=== PATIENT | female | born 1940 | race Caucasian/White ===

== ENCOUNTER 2018-06-10 11:44 | Emergency (ER) | payer OTHER ==
[~2018-06-10] VITALS: Ht 157.5 cm; Wt 45.4 kg
[2018-06-10] MEDS ORDERED: ATENOLOL25 MG (12:27)
[2018-06-10] MEDS ORDERED: AMBIEN10 MG PO (12:28)
[2018-06-10] MEDS ORDERED: ULTRACET PO (12:28)
[2018-06-10] MEDS ORDERED: METFORMIN HCL500 M2 PO (12:28)
[2018-06-10] MEDS ORDERED: LIPITOR20 MG (12:29)
[2018-06-10] MEDS ORDERED: HUMULIN N100 UNIT/2 (12:29)
[2018-06-10] MEDS ORDERED: TRAMADOL HCL50 MG (12:29)
[2018-06-10] MEDS ORDERED: LIPITOR20 MG PO (12:39)
[2018-06-10] MEDS ORDERED: FORTAMET1000 MG PO (12:39)
[2018-06-10] MEDS ORDERED: ATENOLOL25 MG PO (12:39)
[2018-06-10] MEDS ORDERED: HUMULIN N100 UNIT/2 SQ (12:40)
[2018-06-10] MEDS ORDERED: LOSARTAN POTASS25 MG PO (12:41)
== END 2018-06-10 14:13 | disposition home or self-care (01) ==
LOC: ER 11:44
DX: M79.601 Pain in right arm (principal); H53.8 Other visual disturbances

== ENCOUNTER 2018-11-22 09:58 | Emergency (ER) | payer OTHER ==
[~2018-11-22] VITALS: Ht 157.5 cm; Wt 45.4 kg
[~2018-11-22 09:58] MED LIST: AMBIEN10 MG PO; ATENOLOL25 MG; ATENOLOL25 MG PO; FORTAMET1000 MG PO; HUMULIN N100 UNIT/2; HUMULIN N100 UNIT/2 SQ; LIPITOR20 MG; LIPITOR20 MG PO; LOSARTAN POTASS25 MG PO; METFORMIN HCL500 M2 PO; TRAMADOL HCL50 MG; ULTRACET PO
== END 2018-11-22 14:04 | disposition home or self-care (01) ==
LOC: ER 09:58
DX: K11.21 Acute sialoadenitis (principal); E11.65 Type 2 diabetes mellitus with hyperglycemia

== ENCOUNTER 2018-11-25 12:08 | Emergency (ER) | payer OTHER ==
[~2018-11-25] VITALS: Ht 152.4 cm; Wt 45.4 kg
[2018-11-25] MEDS ORDERED: AMBIEN5 MG (12:56)
[2018-11-25] MEDS ORDERED: CLEOCIN HCL300 MG (12:56)
[2018-11-25] MEDS ORDERED: LEVAQUIN500 MG PO (15:28)
== END 2018-11-25 15:49 | disposition home or self-care (01) ==
LOC: ER 12:08
DX: L02.01 Cutaneous abscess of face (principal)

== ENCOUNTER 2022-03-27 14:17 | Emergency (ER) | payer OTHER ==
[~2022-03-27] VITALS: Ht 157.5 cm; Wt 43.1 kg
[~2022-03-27 14:17] MED LIST changes: +AMBIEN5 MG; +CLEOCIN HCL300 MG; +LEVAQUIN500 MG PO
== END 2022-03-27 21:59 | disposition home or self-care (01) ==
LOC: ER 14:17
DX: L03.116 Cellulitis of left lower limb (principal); E11.9 Type 2 diabetes mellitus without complications; Z79.4 Long term (current) use of insulin; I10 Essential (primary) hypertension; Z88.8 Allergy status to other drugs, medicaments and biological substances

== ENCOUNTER 2022-04-26 05:56 | Emergency (ER) | payer OTHER ==
[~2022-04-26] VITALS: Ht 170.2 cm; Wt 43.1 kg
== END 2022-04-26 13:33 | disposition home or self-care (01) ==
LOC: ER 05:56
DX: E11.649 Type 2 diabetes mellitus with hypoglycemia without coma (principal); Z79.4 Long term (current) use of insulin; Z79.84 Long term (current) use of oral hypoglycemic drugs; S01.112A Laceration without foreign body of left eyelid and periocular area, initial encounter; W06.XXXA Fall from bed, initial encounter; Y93.89 Activity, other specified; Y92.013 Bedroom of single-family (private) house as the place of occurrence of the external cause; Y99.9 Unspecified external cause status; I10 Essential (primary) hypertension; Z88.8 Allergy status to other drugs, medicaments and biological substances

== ENCOUNTER 2023-01-28 09:59 | Outpatient (CLI) | payer OTHER ==
[~2023-01-28 09:59] MED LIST changes: +LEXAPRO5 MG PO
== END 2023-01-28 10:15 | disposition home or self-care (01) ==
LOC: RAD 09:59
PROVIDERS: ATTEND Internal Medicine
DX: K22.0 Achalasia of cardia (principal)

== ENCOUNTER → 2023-02-25 | Emergency (ER) | payer OTHER | END | disposition home or self-care (01) | LOC: ER 15:04 | DX: Z53.21 Procedure and treatment not carried out due to patient leaving prior to being seen by health care provider (principal) ==

== ENCOUNTER 2023-03-10 10:51 | Outpatient (CLI) | payer OTHER | END 2023-03-10 11:04 | disposition home or self-care (01) | LOC: TOM 10:51 | PROVIDERS: ATTEND Internal Medicine | DX: H66.90 Otitis media, unspecified, unspecified ear (principal) ==

== ENCOUNTER 2023-11-16 14:54 | Outpatient (CLI) | payer OTHER ==
[~2023-11-16 14:54] MED LIST changes: +COZAAR25 MG PO; +LIPITOR40 M1 PO; +LIRICA; +NEURONTIN300 MG; +TRAMADOL HCL E100 M1; +ZOLPIDEM TARTR3.5 MG
== END 2023-11-16 14:58 | disposition home or self-care (01) ==
LOC: RAD 14:54
PROVIDERS: ATTEND Internal Medicine
DX: R07.82 Intercostal pain (principal); M05.79 Rheumatoid arthritis with rheumatoid factor of multiple sites without organ or systems involvement; Z88.5 Allergy status to narcotic agent

== ENCOUNTER 2024-05-01 15:56 | Inpatient (IN) | payer OTHER ==
[~2024-05-01] VITALS: Ht 162.6 cm; Wt 49.9 kg
[2024-05-01] MEDS ORDERED: 0.9 % SODIUM CHLORIDE 1,000 ML IV SCH (16:45)
[2024-05-01] MEDS ORDERED: VANCOMYCIN HCL 1,000 MG VIAL IV ONE (16:45)
[2024-05-01] MEDS ORDERED: VANCOMYCIN HCL 1,000 MG VIAL ONE (16:48)
[2024-05-01 17:22] LABS: HEMATOCRIT 38.4 % (36.0-45.00); HEMOGLOBIN 12.9 g/dL (12.0-15.00); MEAN CORPUSCULAR HEMOGLOBIN 30.9 pg (27.00-32.0); MEAN CORPUSCULAR HGB CONC 33.6 g/dl (32.0-36.0); PLATELET COUNT 202 K/uL (150-450); RED BLOOD COUNT 4.18 M/uL (4.00-6.00); RED CELL DISTRIBUTION WIDTH 13.9 % (11.5-14.5)
[2024-05-01 17:35] LABS: ERYTHROCYTE SEDIMENTATION RATE 49 mm/hr
[2024-05-01 18:15] LABS: ALBUMIN 3.4 gm/dL (3.4-5.0); BILIRUBIN TOTAL 0.38 mg/dL (0.3-1.2); CALCIUM 9.8 mg/dL (8.5-10.1); CREATININE SERUM 0.87 mg/dL (0.55-1.02); GFR 61.88; GLOBULINA 4.2 G/DL (2.4-3.5); POTASSIUM 4.44 mEq/L (3.5-5.1); TOTAL PROTEIN 7.6 gm/dL (6.4-8.2)
[2024-05-01 18:16] LABS: C-REACTIVE PROTEIN 3.2 MG/DL (0.00-0.29)
[2024-05-01] MEDS ORDERED: GABAPENTIN 300 MG CAPSULE PO SCH (20:34)
[2024-05-01] MEDS ORDERED: CEFTRIAXONE SODIUM 2,000 MG in 0.9 % SODIUM CHLORIDE 100 ML IV SCH (20:35)
[2024-05-01] MEDS ORDERED: ACETAMINOPHEN 500 MG GEL..CAP PO PRN (20:45)
[2024-05-01] MEDS ORDERED: INSULIN LISPRO 1,000 UNIT/10 ML UNITS SUBCUTANEO PRN (20:45)
[2024-05-01] MEDS ORDERED: KETOROLAC TROMETHAMINE 15 MG VIAL IU ONE (20:45)
[2024-05-01] MEDS ORDERED: DEXTROSE 50 % IN WATER 0.5 G/ML DISP.SYRIN IV PRN (20:45)
[2024-05-01] MEDS ORDERED: ZOLPIDEM TARTRATE 10 MG TABLET PO SCH (21:00)
[2024-05-01] MEDS ORDERED: KETOROLAC TROMETHAMINE 30 MG VIAL ONE (22:08)
[2024-05-01] MEDS ORDERED: CEFTRIAXONE SODIUM 2,000 MG VIAL ONE (22:09)
[2024-05-01 23:17] LABS: URINE APPEARANCE Clear; URINE BILIRRUBIN Negative (NEGATIVE); URINE BLOOD Negative; URINE COLOR Yellow; URINE GLUCOSE Negative (NEGATIVE); URINE KETONE Negative (NEGATIVE); URINE LEUKOCYTE Moderate; URINE NITRATE Negative; URINE PROTEIN Negative (NEGATIVE); URINE UROBILINOGEN 0.2 E.U./dl
[2024-05-01 23:18] LABS: PARTIAL THROMBOPLASTIN TIME 30.5 SECONDS (22.0-34.0); PROTHROMBIN TIME 10.9 SECONDS (9.0-11.5)
[2024-05-01 23:21] LABS: URINE BACTERIA 322.4 uL (0.0-1933); URINE EPITHELIAL CELLS 12.2 uL (0.0-38.8); URINE WBC 250.4 uL (0.0-23.2)
[2024-05-01 23:31] LABS: URINE CAST 0.15 uL (0.0-1.40); URINE RBC 1.8 uL (0.0-20.8)
[2024-05-02] MEDS ORDERED: LOSARTAN POTASSIUM 25 MG TABLET PO SCH (09:00)
[2024-05-02] MEDS ORDERED: FAMOTIDINE/PF 20 MG in 0.9 % SODIUM CHLORIDE 8 ML IV PUSH SCH (09:00)
[2024-05-02] MEDS ORDERED: ATORVASTATIN CALCIUM 40 MG TABLET PO SCH (09:00)
[2024-05-02] MEDS ORDERED: ENOXAPARIN SODIUM 40 MG/0.4 ML SYRINGE SUBCUTANEO SCH (09:00)
[2024-05-02] MEDS ORDERED: VANCOMYCIN HCL 1,000 MG VIAL IV SCH (09:00)
[2024-05-02] MEDS ORDERED: ISOSORBIDE MONONITRATE 30 MG TABLET PO SCH (09:00)
[2024-05-02] MEDS ORDERED: ATENOLOL 25 MG TABLET PO SCH (09:00)
[2024-05-02] MEDS ORDERED: INSULIN LISPRO 1,000 UNIT/10 ML UNITS SUBCUTANEO PRN (21:45)
[2024-05-03 08:29] LABS: HEMATOCRIT 37.6 % (36.0-45.00); HEMOGLOBIN 12.8 g/dL (12.0-15.00); MEAN CORPUSCULAR HEMOGLOBIN 30.7 pg (27.00-32.0); MEAN CORPUSCULAR HGB CONC 34.1 g/dl (32.0-36.0); PLATELET COUNT 155 K/uL (150-450); RED BLOOD COUNT 4.17 M/uL (4.00-6.00); RED CELL DISTRIBUTION WIDTH 13.6 % (11.5-14.5)
[2024-05-03 08:42] LABS: ALBUMIN 3.1 gm/dL (3.4-5.0); BILIRUBIN TOTAL 0.46 mg/dL (0.3-1.2); CALCIUM 8.7 mg/dL (8.5-10.1); CREATININE SERUM 0.59 mg/dL (0.55-1.02); GFR 96.87; GLOBULINA 3.4 G/DL (2.4-3.5); POTASSIUM 4.33 mEq/L (3.5-5.1); TOTAL PROTEIN 6.5 gm/dL (6.4-8.2); TSH 1.27 uIU/mL (0.358-3.74)
[2024-05-03] MEDS ORDERED: ASPIRIN 81 MG TABLET.EC PO SCH (09:00)
[2024-05-03] MEDS ORDERED: INSULIN GLARGINE,HUM.REC.ANLOG 1,000 UNITS/10 ML UNITS SUBCUTANEO STA (21:50)
[2024-05-04] MEDS ORDERED: INSULIN GLARGINE,HUM.REC.ANLOG 1,000 UNITS/10 ML UNITS SUBCUTANEO SCH (21:00)
[2024-05-05] MEDS ORDERED: INSULIN LISPRO 1,000 UNIT/10 ML UNITS SUBCUTANEO SCH (08:00)
[2024-05-05] MEDS ORDERED: 0.9 % SODIUM CHLORIDE 10 ML VIAL IJ ONE (09:20)
== END 2024-05-05 18:16 | disposition home or self-care (01) | DRG 264 ==
LOC: ER 15:56 → SEC-K 21:27 → SURG 21:27
PROVIDERS: General Practice; Internal Medicine Endocrinology, Diabetes & Metabolism; ADMIT Internal Medicine; ATTEND Internal Medicine
PROC: B54DZZZ Ultrasonography of Bilateral Lower Extremity Veins (ICD-10-PCS; 2024-05-01)
PROC: B44HZZZ Ultrasonography of Bilateral Lower Extremity Arteries (ICD-10-PCS; 2024-05-01)
PROC: 0JBQ0ZZ Excision of Right Foot Subcutaneous Tissue and Fascia, Open Approach (ICD-10-PCS; principal; 2024-05-03)
DX: E11.51 Type 2 diabetes mellitus with diabetic peripheral angiopathy without gangrene (principal); L03.115 Cellulitis of right lower limb; E11.621 Type 2 diabetes mellitus with foot ulcer; L97.519 Non-pressure chronic ulcer of other part of right foot with unspecified severity; E11.65 Type 2 diabetes mellitus with hyperglycemia; I11.9 Hypertensive heart disease without heart failure; F03.90 Unspecified dementia, unspecified severity, without behavioral disturbance, psychotic disturbance, mood disturbance, and anxiety; Z79.84 Long term (current) use of oral hypoglycemic drugs; Z79.4 Long term (current) use of insulin; Z95.1 Presence of aortocoronary bypass graft

== ENCOUNTER 2024-05-29 12:35 | Inpatient (IN) | payer OTHER ==
[~2024-05-29] VITALS: Ht 157.5 cm; Wt 48.1 kg
--- NOTE | 2024-05-29 13:10 | NUR ---
SE RECIBE PACIENTE ALERTA Y ORIENTADO X3. PARAMEDICOS REFIEREN ENCONTRAR A PACIENTE HIPOTENSA, SUDOROSA Y PALIDA. PACIENTE AL MOMENTO REFIERE DOLOR DE PECHO EN LADO LIBRADO. LA MISMA REACCIONA A DOLOR POR PRESION. FAMILIAR REFIERE HACE UNOS CALDERA LE REALIZARON UN ARTERIOGRAMA. FAMILIAR REFIERE CARDIOLOGO ES JOSE MCKENZIE O DR. CHAPARRO. SE MIDEN S/V. SE REALIZA EKG Y SE UBICA EN K8, CON MONITOR CARDIACO.
--- NOTE | 2024-05-29 13:27 | NUR ---
PTE ALERTA Y ORIENTADA X3. RN GRANT EDUCA A PTE SOBRE [place] MEDICO, LA MISMA REFIERE ENTENDER. SE EVERARDO MUESTRAS DE LAB BAJO MEDIDAS ASEPTICAS Y SE ENVIAN. SE NOTIFICA PLACA PENDIENTE
[2024-05-29 13:52] LABS: HEMOGLOBIN 11.6 g/dL (12.0-15.00); MEAN CELL VOLUME 91.1 fL (80.00-100.00); MEAN CORPUSCULAR HEMOGLOBIN 30.2 pg (27.00-32.0); MEAN CORPUSCULAR HGB CONC 33.2 g/dl (32.0-36.0); PLATELET COUNT 158 K/uL (150-450); RED BLOOD COUNT 3.84 M/uL (4.00-6.00); RED CELL DISTRIBUTION WIDTH 13.7 % (11.5-14.5)
[2024-05-29 14:22] LABS: ABG PH 7.432 (7.35-7.45); ABG PO2 71.8 mmHg (80-100); ABG pCO2 36.7 mmHg (35-45); BASE EXCESS 0 mmol/l; BICARBONATE 23.9 mmol/l (23-25); SaO2 94.7 %; Tco2 25.1 mmol/l
[2024-05-29 14:57] LABS: allen test SATISFACTORY; o2 21 %; puncture site RADIAL RIGHT
[2024-05-29 15:21] LABS: ALBUMIN 2.9 gm/dL (3.4-5.0); BILIRUBIN TOTAL 0.45 mg/dL (0.3-1.2); CALCIUM 8.6 mg/dL (8.5-10.1); CREATININE SERUM 0.82 mg/dL (0.55-1.02); GFR 66.26; GLOBULINA 3.3 G/DL (2.4-3.5); POTASSIUM 4.81 mEq/L (3.5-5.1); TOTAL PROTEIN 6.2 gm/dL (6.4-8.2)
[2024-05-29 15:42] LABS: PH,URINE 6.5 (5.0-8.0); URINE APPEARANCE Clear; URINE BILIRRUBIN Negative (NEGATIVE); URINE BLOOD Negative; URINE COLOR Yellow; URINE GLUCOSE Negative (NEGATIVE); URINE KETONE Negative (NEGATIVE); URINE LEUKOCYTE Trace; URINE NITRATE Negative; URINE PROTEIN Negative (NEGATIVE); URINE UROBILINOGEN 0.2 E.U./dl
[2024-05-29 15:43] LABS: URINE EPITHELIAL CELLS 5.1 uL (0.0-38.8); URINE WBC 9.5 uL (0.0-23.2)
[2024-05-29 15:45] LABS: URINE RBC 1.8 uL (0.0-20.8)
[2024-05-29] MEDS ORDERED: CEFTRIAXONE SODIUM 1,000 MG VIAL IV ONE (15:45)
[2024-05-29] MEDS ORDERED: CEFTRIAXONE SODIUM 1,000 MG VIAL ONE (15:45)
[2024-05-29] MEDS ORDERED: INSULIN LISPRO 1,000 UNIT/10 ML UNITS SUBCUTANEO PRN (19:30)
[2024-05-29] MEDS ORDERED: 0.9 % SODIUM CHLORIDE 1,000 ML IV SCH (19:30)
[2024-05-29] MEDS ORDERED: DEXTROSE 50 % IN WATER 0.5 G/ML DISP.SYRIN IV PRN (19:30)
[2024-05-29] MEDS ORDERED: ACETAMINOPHEN 500 MG GEL..CAP PO PRN (19:30)
[2024-05-29] MEDS ORDERED: GUAIFEN/DEXTROMETHORPHAN/PE 10 ML BLIST.PACK PO SCH (21:00)
[2024-05-29] MEDS ORDERED: ZOLPIDEM TARTRATE 10 MG TABLET PO SCH (21:00)
[2024-05-29] MEDS ORDERED: FUROsemide 20 MG/2 ML VIAL IV SCH (21:00)
[2024-05-29] MEDS ORDERED: FUROsemide 20 MG/2 ML VIAL ONE (23:42)
[2024-05-29] MEDS ORDERED: GUAIFEN/DEXTROMETHORPHAN/PE 10 ML BLIST.PACK PO ONE (23:43)
[2024-05-29 23:58] LABS: PARTIAL THROMBOPLASTIN TIME 27.6 SECONDS (22.0-34.0); PROTHROMBIN TIME 10.9 SECONDS (9.0-11.5)
[2024-05-30 00:22] VITALS: BP 134/58; O2SAT 96
[2024-05-30] MEDS ORDERED: CEFEPIME HCL 2,000 MG in 0.9 % SODIUM CHLORIDE 100 ML IV SCH ×2 (01:00→21:00)
[2024-05-30] MEDS ORDERED: CEFEPIME HCL 2,000 MG VIAL ONE (01:16)
[2024-05-30] MEDS ORDERED: GUAIFEN/DEXTROMETHORPHAN/PE 10 ML BLIST.PACK PO ONE (04:45)
[2024-05-30 07:00] VITALS: BP 132/63; O2SAT 97
[2024-05-30] MEDS ORDERED: ATORVASTATIN CALCIUM 40 MG TABLET PO SCH (09:00)
[2024-05-30] MEDS ORDERED: ISOSORBIDE MONONITRATE 30 MG TABLET PO SCH (09:00)
[2024-05-30] MEDS ORDERED: PATIENTS OWN MEDICATION (MEDICAMENTO EN PISO) PO SCH (09:00)
[2024-05-30] MEDS ORDERED: FAMOTIDINE/PF 20 MG in 0.9 % SODIUM CHLORIDE 8 ML IV PUSH SCH (09:00)
[2024-05-30] MEDS ORDERED: LOSARTAN POTASSIUM 25 MG TABLET PO SCH (09:00)
[2024-05-30] MEDS ORDERED: GABAPENTIN 300 MG CAPSULE PO SCH (09:00)
[2024-05-30 15:50] VITALS: BP 111/62; O2SAT 97
[2024-05-30] MEDS ORDERED: METRONIDAZOLE/SODIUM CHLORIDE 100 ML IV SCH (17:00)
[2024-05-30 17:07] VITALS: BP 101/60; O2SAT 100
[2024-05-31 00:20] VITALS: BP 107/63; O2SAT 97
[2024-05-31 07:38] LABS: HEMATOCRIT 38.2 % (36.0-45.00); HEMOGLOBIN 13.2 g/dL (12.0-15.00); MEAN CELL VOLUME 90.1 fL (80.00-100.00); MEAN CORPUSCULAR HEMOGLOBIN 31.2 pg (27.00-32.0); MEAN CORPUSCULAR HGB CONC 34.6 g/dl (32.0-36.0); PLATELET COUNT 168 K/uL (150-450); RED BLOOD COUNT 4.24 M/uL (4.00-6.00); RED CELL DISTRIBUTION WIDTH 13.7 % (11.5-14.5)
[2024-05-31] MEDS ORDERED: FAMOTIDINE/PF 20 MG/2 ML VIAL ONE (07:54)
[2024-05-31] MEDS ORDERED: INSULIN LISPRO 1,000 UNIT/10 ML UNITS SUBCUTANEO SCH ×2 (08:00→17:00)
[2024-05-31 08:20] LABS: BILIRUBIN TOTAL 0.44 mg/dL (0.3-1.2); CALCIUM 8.9 mg/dL (8.5-10.1); CREATININE SERUM 0.81 mg/dL (0.55-1.02); GFR 67.2; PHOSPHOROUS 3.1 mg/dL (2.5-4.9); POTASSIUM 4.22 mEq/L (3.5-5.1)
[2024-05-31 08:22] LABS: C-REACTIVE PROTEIN 1.35 MG/DL (0.00-0.29)
[2024-05-31 08:40] LABS: PLATELET ESTIMATE NORMAL (NORMAL)
[2024-05-31] MEDS ORDERED: GABAPENTIN 300 MG CAPSULE PO SCH (09:00)
[2024-05-31] MEDS ORDERED: INSULIN GLARGINE,HUM.REC.ANLOG 1,000 UNITS/10 ML UNITS SUBCUTANEO SCH (09:00)
[2024-05-31 09:07] VITALS: BP 133/67; O2SAT 97
[2024-05-31 16:00] VITALS: BP 116/64; O2SAT 97
[2024-05-31] MEDS ORDERED: AMPICILLIN SODIUM/SULBACTAM NA 3,000 MG in 0.9 % SODIUM CHLORIDE 100 ML IV SCH (17:00)
[2024-06-01 01:53] VITALS: BP 110/58
[2024-06-01] MEDS ORDERED: INSULIN NPH HUMAN ISOPHANE 1,000 UNITS/10 ML UNITS SUBCUTANEO SCH (08:00)
[2024-06-01 09:21] VITALS: BP 138/76; O2SAT 97
[2024-06-01 19:07] VITALS: BP 110/72; O2SAT 97
[2024-06-02 02:17] VITALS: BP 147/79
[2024-06-02] MEDS ORDERED: AMPICILLIN TRI500 MG PO (08:36)
[2024-06-02] MEDS ORDERED: INTESTINEX680 M1 PO (08:37)
[2024-06-02 08:48] VITALS: BP 162/73; O2SAT 97
[2024-06-02 17:34] VITALS: BP 120/70; O2SAT 95
== END 2024-06-02 19:00 | disposition home or self-care (01) | DRG 315 ==
LOC: ER 12:35 → MEDI 19:45 → SEC-K 19:45 → MEDI 05-30 11:34 → MEDJ 06-01 21:27 → MEDI 06-01 21:50
PROVIDERS: General Practice; Internal Medicine Infectious Disease; ADMIT Internal Medicine; ATTEND Internal Medicine
PROC: BW21YZZ Computerized Tomography (CT Scan) of Abdomen and Pelvis using Other Contrast (ICD-10-PCS; principal; 2024-05-29)
PROC: B246ZZZ Ultrasonography of Right and Left Heart (ICD-10-PCS; 2024-05-29)
PROC: 4A12X4Z Monitoring of Cardiac Electrical Activity, External Approach (ICD-10-PCS; 2024-05-29)
DX: I95.9 Hypotension, unspecified (principal); I25.810 Atherosclerosis of coronary artery bypass graft(s) without angina pectoris; N39.0 Urinary tract infection, site not specified; S70.02XA Contusion of left hip, initial encounter; E11.628 Type 2 diabetes mellitus with other skin complications; E11.65 Type 2 diabetes mellitus with hyperglycemia; E11.42 Type 2 diabetes mellitus with diabetic polyneuropathy; E11.621 Type 2 diabetes mellitus with foot ulcer; L97.529 Non-pressure chronic ulcer of other part of left foot with unspecified severity; L97.519 Non-pressure chronic ulcer of other part of right foot with unspecified severity; M06.842 Other specified rheumatoid arthritis, left hand; M06.841 Other specified rheumatoid arthritis, right hand; B95.2 Enterococcus as the cause of diseases classified elsewhere; I11.9 Hypertensive heart disease without heart failure; Z95.1 Presence of aortocoronary bypass graft; Z79.4 Long term (current) use of insulin; Z79.84 Long term (current) use of oral hypoglycemic drugs; Z98.62 Peripheral vascular angioplasty status; R05.9 Cough, unspecified; X58.XXXA Exposure to other specified factors, initial encounter; Y93.9 Activity, unspecified; Y92.9 Unspecified place or not applicable; Y99.9 Unspecified external cause status; Z96.642 Presence of left artificial hip joint

== ENCOUNTER 2025-02-26 12:07 | Outpatient (CLI) | payer OTHER ==
[~2025-02-26 12:07] MED LIST changes: +AMPICILLIN TRI500 MG PO; +INTESTINEX680 M1 PO
== END 2025-02-26 12:18 | disposition home or self-care (01) ==
LOC: MRI 12:07
PROVIDERS: ATTEND Internal Medicine
DX: R41.82 Altered mental status, unspecified (principal)
CPT/HCPCS: 70551

== ENCOUNTER 2025-07-15 01:01 | Emergency (ER) | payer OTHER ==
[~2025-07-15] VITALS: Ht 157.5 cm; Wt 45.4 kg
[2025-07-15] MEDS ORDERED: DEXAMETHASONE SODIUM PHOSPHATE 4 MG/ML VIAL IM STA (01:50)
[2025-07-15] MEDS ORDERED: DEXAMETHASONE SODIUM PHOSPHATE 4 MG/ML VIAL ONE (02:03)
[2025-07-15 02:40] LABS: BASO % 0.9 % (0.1-1.2); EOS # 0.38 (0.04-0.54); EOS % 4.2 % (0.7-7.0); LYMPH # 2.20 (1.18-3.74); LYMPH % 24.3 % (19.3-53.1); MEAN PLATELET VOLUME 12.30 fl (9.4-12.4); MONO # 1.13 (0.24-0.82); NEUT # 5.23 (1.56-6.13); NEUT % 57.5 % (34.0-71.1); RED CELL DISTRIBUTION WIDTH 12.7 % (11.6-14.4)
[2025-07-15 02:41] LABS: MONO % 12.5 % (4.7-12.5)
[2025-07-15 02:57] LABS: BUN CREA RATIO 39.0 (7.0-25.0); CREATININE SERUM 0.76 mg/dL (0.55-1.02); GFR 72.16; GLUCOSE FASTING 194.0 mg/dL (65-100); OSMOLALITY SERUM 289.0 MOSM/KG (275-295)
[2025-07-15 03:29] LABS: URINE APPEARANCE Clear; URINE BILIRRUBIN Negative (NEGATIVE); URINE BLOOD Negative; URINE COLOR Yellow; URINE GLUCOSE Negative (NEGATIVE); URINE KETONE Negative (NEGATIVE); URINE LEUKOCYTE Small; URINE NITRATE Negative; URINE PROTEIN Negative (NEGATIVE); URINE UROBILINOGEN 0.2 E.U./dl
[2025-07-15 03:33] LABS: URINE BACTERIA 465.5 uL (0.0-1933); URINE EPITHELIAL CELLS 3.3 uL (0.0-38.8); URINE RBC 9.8 uL (0.0-20.8); URINE WBC 26.7 uL (0.0-23.2)
[2025-07-15 03:45] LABS: URINE CAST 0.00 uL (0.0-1.40)
[2025-07-15] MEDS ORDERED: INSULIN LISPRO 1,000 UNIT/10 ML UNITS SUBCUTANEO ONE (04:30)
== END 2025-07-15 06:04 | disposition home or self-care (01) ==
LOC: ER 01:01
PROVIDERS: General Practice
DX: S01.82XA Laceration with foreign body of other part of head, initial encounter (principal); W18.39XA Other fall on same level, initial encounter; Y93.89 Activity, other specified; Y92.013 Bedroom of single-family (private) house as the place of occurrence of the external cause; Z88.8 Allergy status to other drugs, medicaments and biological substances; Z79.4 Long term (current) use of insulin; G30.8 Other Alzheimer's disease; F02.80 Dementia in other diseases classified elsewhere, unspecified severity, without behavioral disturbance, psychotic disturbance, mood disturbance, and anxiety; M19.90 Unspecified osteoarthritis, unspecified site; E11.9 Type 2 diabetes mellitus without complications; Z95.1 Presence of aortocoronary bypass graft
CPT/HCPCS: 36415; 70450; 96372; 99284; J1100; J1815

== ENCOUNTER → 2025-08-08 08:28 | Outpatient (CLI) | payer OTHER | END | disposition home or self-care (01) | LOC: NUCLEAR 08:28 | PROVIDERS: ATTEND Psychiatry & Neurology Clinical Neurophysiology | DX: G30.1 Alzheimer's disease with late onset (principal) | CPT/HCPCS: 78803; A9557 ==